=== PATIENT | male | born 1955 | race Caucasian/White ===

== ENCOUNTER 2020-01-21 18:15 | Emergency (ER) | payer OTHER, MEDICARE ==
[~2020-01-21] VITALS: Ht 177.8 cm; Wt 107.0 kg
[~2020-01-21 18:15] MED LIST: CENTRUM SILVER1 EAC4 PO; CILOXAN 5 ML5 M1 OT; COZAAR50 M1 PO; ZOLOFT50 MG PO
== END 2020-01-21 18:55 | disposition short-term general hospital (02) ==
LOC: ED 18:15
DX: T14.90XA Injury, unspecified, initial encounter (principal); I10 Essential (primary) hypertension; F32.9 Major depressive disorder, single episode, unspecified; V89.2XXA Person injured in unspecified motor-vehicle accident, traffic, initial encounter; Y93.89 Activity, other specified; Y92.89 Other specified places as the place of occurrence of the external cause; Y99.8 Other external cause status

== ENCOUNTER 2024-02-13 00:16 | Emergency (ER) | payer OTHER ==
[~2024-02-13] VITALS: Wt 108.9 kg
[2024-02-13 00:40] LABS: BASO % 0.6 % (0.0-1.0); EOS # 0.2 10*3/uL (0.0-0.4); EOS % 2.9 % (1.0-4.0); HEMATOCRIT 35.1 % (42.0-52.0); MEAN CELL VOLUME 91.2 fl (80.0-94.0); MEAN CORPUSCULAR HGB 30.4 pg (27.0-31.0); MEAN CORPUSCULAR HGB CONC 33.3 g/dl (33.0-37.0); MEAN PLATELET VOLUME 8.6 fl (9.6-12.3); MONO # 0.6 10*3/uL (0.1-1.0); MONO % 8.6 % (3.0-9.0); NEUT # 4.3 10*3/uL (2.3-7.9); NEUT % 59.2 % (47.0-73.0); PLATELET COUNT AUTOMATED 179 10*3/uL (130-400); RED BLOOD COUNT 3.85 10*6/uL (4.50-5.90); RED CELL DISTRI WIDTH 13.2 % (0-14.5); WHITE BLOOD COUNT 7.2 10*3/uL (4.8-10.8)
[2024-02-13 00:59] LABS: BUN 8 mg/dl (9-23); CHLORIDE 94 mmol/L (98-107); ETHYL ALCOHOL 281.8 mg/dl (<3)
[2024-02-13] MEDS ORDERED: MULTIVITAMIN CONCENTRATE (IV) 10 ML,Thiamine 100 MG,FOLIC ACID 1 MG in SODIUM CHLORIDE ... IV ONE (01:10)
[2024-02-13] MEDS ORDERED: Thiamine 200 MG/2 ML VIAL ONE (02:11)
[2024-02-13] MEDS ORDERED: FOLIC ACID 50 MG/10 ML VIAL IV ONE (10:31)
[2024-02-13] MEDS ORDERED: MULTIVITAMIN CONCENTRATE (IV) 10 ML VIAL IV ONE (10:31)
[2024-02-13] MEDS ORDERED: Thiamine 200 MG/2 ML VIAL IV ONE (10:31)
== END 2024-02-13 13:40 | disposition home or self-care (01) ==
LOC: ED 00:16
PROVIDERS: Internal Medicine
DX: F10.129 Alcohol abuse with intoxication, unspecified (principal); I10 Essential (primary) hypertension; F32.A Depression, unspecified; Z98.890 Other specified postprocedural states; Z90.49 Acquired absence of other specified parts of digestive tract; Z79.899 Other long term (current) drug therapy; Y90.6 Blood alcohol level of 120-199 mg/100 ml; W19.XXXA Unspecified fall, initial encounter